=== PATIENT | male | born 1990 | race Hispanic/Latino ===

== ENCOUNTER 2022-06-08 15:26 | Emergency (ER) | payer OTHER, SELFPAY | END 2022-06-08 19:17 | disposition home or self-care (01) | LOC: CSHERS 15:26 | DX: T78.2XXA Anaphylactic shock, unspecified, initial encounter (principal); F17.290 Nicotine dependence, other tobacco product, uncomplicated | CPT/HCPCS: 94640; 96372; 96374; 96375; J7620 ==

== ENCOUNTER 2025-10-31 16:48 | Emergency (ER) | payer BC | END 2025-10-31 18:11 | disposition home or self-care (01) | LOC: CSHERS 16:48 | DX: B34.9 Viral infection, unspecified (principal); F17.290 Nicotine dependence, other tobacco product, uncomplicated | CPT/HCPCS: 87428; 99284 ==